=== PATIENT | female | born 1965 | race Caucasian/White ===

== ENCOUNTER 2020-06-30 22:06 | Emergency (ER) | payer OTHER ==
[~2020-06-30] VITALS: Ht 162.6 cm; Wt 95.3 kg
[2020-06-30] MEDS ORDERED: FLONASE 0.05%50 MCG NARES (22:15)
[2020-06-30] MEDS ORDERED: MONTELUKAST SODI4 M1 PO (22:15)
[2020-06-30 22:45] LABS: ABSOLUTE LYMPHOCYTES 0.9 thou/uL (0.8-5.3); ABSOLUTE MONOCYTES 0.2 thou/uL (0.0-1.2); ABSOLUTE NEUTROPHILS 1.9 thou/uL (1.6-8.1); BASOPHILS 0.5 %; EOSINOPHILS 1.2 %; HEMATOCRIT 41.3 % (37.0-47.0); HEMOGLOBIN 14.1 gm/dL (12.0-15.0); LYMPHOCYTES 28.7 %; MCH 29.5 pg (26.0-34.0); MCHC 34.2 g/dL (28.0-37.0); MCV 86.2 fL (80.0-100.0); MONOCYTES 7.9 %; MPV 7.5 fl. (7.2-11.1); NUCLEATED RBCS 0 /100WBC; PLATELET COUNT* 155 thou/uL (150-400); POLYS 61.7 %; RBC 4.79 mil/uL (4.20-5.00); RDW-CV 13.1 % (10.5-14.5); WBC 3.1 thou/uL (4.0-11.0)
[2020-06-30 22:59] LABS: CALCIUM 8.8 mg/dL (8.5-10.1); CREATININE 0.9 mg/dL (0.6-1.3); POTASSIUM 3.5 mmol/L (3.5-5.1)
[2020-06-30 23:09] LABS: ALBUMIN 3.7 g/dL (3.4-5.0); DIRECT BILIRUBIN 0.2 mg/dL (<0.1-0.3); MAGNESIUM 1.7 mg/dL (1.8-2.4); TOTAL BILIRUBIN 0.5 mg/dL (<0.1-1.0); TOTAL PROTEIN 7.1 g/dL (6.4-8.2)
[2020-06-30 23:37] LABS: URINE BILIRUBIN NEGATIVE (Negative); URINE BLOOD NEGATIVE (Negative); URINE CLARITY CLEAR; URINE COLOR YELLOW; URINE GLUCOSE-RANDOM NEGATIVE (Negative); URINE KETONES TRACE (Negative); URINE LEUKOCYTES NEGATIVE (Negative); URINE NITRITE NEGATIVE (Negative); URINE PROTEIN NEGATIVE (Negative); URINE SPECIFIC GRAVITY 1.015 (1.005-1.030); URINE UROBILINOGEN 0.2 E.U./dl (0.2-1.0)
[2020-07-01] MEDS ORDERED: TYLENOL325 M1 PO (00:51)
[2020-07-01] MEDS ORDERED: VANACOF DM LIQ240 ML PO (00:51)
[2020-07-01 01:10] VITALS: BP 113/62
--- NOTE | 2020-07-01 13:00 | EKG ---
[place] [address] ELECTROCARDIOGRAM REPORT Name: BERNARD AGARWAL Room: [facility]#: [id number] Admission: 06/30/20 Attend Phys: Discharge: 07/01/20 Date of : 65 Date of Service: 06/30/202211 Report #: [id number] THIS REPORT FOR: //name// [facility] ED Test Date: 2020-06-30 Test Time: 22:12:06 Pat Name: BERNARD AGARWAL Department: Room: Gender: F Certified Dialysis Technician: ALBER : 1965 Requested By: Zenon Gonzalez Order Number: [id number] MD: Luis Travis Measurements Intervals [place] Rate: 79 P: 22 FL: 187 QRS: 18 QRSD: 98 T: 35 QT: 399 QTc: 458 Interpretive Statements Sinus rhythm No previous ECG available for comparison Electronically Signed On 07-01-2020 13:00:29 ELECTRONICS TECHNICIAN by Luis Travis [email or web address] <ELECTRONICALLY SIGNED> By: Luis Travis MD, [facility] 07/01/20 [facility] [place] 11 11 Luis Travis MD, FACC /EPI
== END 2020-07-01 01:10 | disposition home or self-care (01) ==
LOC: M.ERS 22:06
PROVIDERS: Emergency Medicine
DX: U07.1 COVID-19 (principal); E86.0 Dehydration; R55 Syncope and collapse; Z98.51 Tubal ligation status; Z98.890 Other specified postprocedural states; Z79.899 Other long term (current) drug therapy; Z90.49 Acquired absence of other specified parts of digestive tract

== ENCOUNTER 2020-07-03 10:49 | Emergency (ER) | payer OTHER ==
[~2020-07-03] VITALS: Ht 162.6 cm; Wt 95.3 kg
[~2020-07-03 10:49] MED LIST: FLONASE 0.05%50 MCG NARES; MONTELUKAST SODI4 M1 PO; TYLENOL325 M1 PO; VANACOF DM LIQ240 ML PO
[2020-07-03 11:48] LABS: HEMATOCRIT 40.8 % (37.0-47.0); MCH 29.5 pg (26.0-34.0); MCHC 34.4 g/dL (28.0-37.0); MCV 85.7 fL (80.0-100.0); MPV 7.5 fl. (7.2-11.1); RBC 4.76 mil/uL (4.20-5.00); RDW-CV 12.7 % (10.5-14.5); WBC 3.8 thou/uL (4.0-11.0)
[2020-07-03 12:00] LABS: CREATININE 0.8 mg/dL (0.6-1.3); POTASSIUM 3.8 mmol/L (3.5-5.1)
[2020-07-03 12:30] VITALS: BP 118/57
--- NOTE | 2020-07-04 10:33 | EKG ---
[place] [address] ELECTROCARDIOGRAM REPORT Name: BERNARD AGARWAL Room: [facility]#: [id number] Admission: 07/03/20 Attend Phys: Discharge: 07/03/20 Date of : 65 Date of Service: 07/03/20 1108 Report #: [id number] THIS REPORT FOR: //name// [facility] ED Test Date: 2020-07-03 Test Time: 11:08:57 Pat Name: BERNARD AGARWAL Department: Room: Gender: F Catering Administrative Assistant: ANJEL : 1965 Requested By: Jose Roberto Order Number: [id number] MD: Damián Wilson Measurements Intervals [place] Rate: 83 P: 26 NE: 181 QRS: 27 QRSD: 106 T: 27 QT: 379 QTc: 446 Interpretive Statements Sinus rhythm Low voltage, precordial leads Compared to ECG 06/30/2020 22:12:06 Low QRS voltage now present Electronically Signed On 07-04-2020 10:33:16 [employer]CHIT[employer] by Damián Wilson [email or web address] <ELECTRONICALLY SIGNED> By: Damián Wilson MD, FACC 07/04/20 1033 1108 1108 Damián Wilson MD, [facility] /EPI
== END 2020-07-03 12:30 | disposition home or self-care (01) ==
LOC: M.ERS 10:49
PROVIDERS: Emergency Medicine Emergency Medical Services
DX: U07.1 COVID-19 (principal); Z98.51 Tubal ligation status